=== PATIENT | male | born 1985 | race Caucasian/White ===

== ENCOUNTER 2021-09-14 12:46 | Emergency (ER) | payer OTHER, SELFPAY ==
[2021-09-14 12:47] VITALS: BP 134/87; PULSE 78; RESP 16; TEMP 36.8; O2SAT 98; BMI 22.8
--- NOTE | 2021-09-14 13:11 | PC.NURSE ---
Notified lab of drug screen for workers comp
--- NOTE | 2021-09-14 14:00 | [facility].EDWNDL ---
ED Disposition Clinical Impression: Laceration Disposition: Home, Self-Care Condition on Discharge: Good Instructions: DI for Laceration Repair Additional Instructions: Please follow-up with your primary care physician in 5 to 7 days days for further management and wound check. Please keep wound clean and dry. If any signs of infection such as surrounding redness, white purulent drainage or any other concerning signs for infection please return back to the emergency department. Please also return for any concerning signs such as severe headache, numbness, weakness, speech changes, visual abnormalities or any other concerning symptoms. Referrals: Provider,Referral, MD [Primary Care Provider] - - Critical Care Critical Care Time: No Attestation: On 09/14/21, the high probability of a clinically significant, sudden or life threatening deterioration of the following system(s) required my full and direct attention, intervention and personal management. The time I documented below is in addition to time spent performing reported procedures but includes the following listed in this critical care notation. Medical Decision Making - Medical Records Medical records reviewed: Yes: I reviewed the patient's medical records. - Justin Inquiry Pt receiving controlled substance: No Vital Signs: 09/14/21 12:47 09/14/21 14:10 Temperature 98.3 F 98.3 F Temperature Source Oral Oral Pulse Rate 84 Pulse Rate [Right] 78 Respiratory Rate 16 16 Blood Pressure 138/80 Blood Pressure [Right Arm] 134/87 Blood Pressure Mean [Right Arm] 102 Blood Pressure Source Automatic Cuff Blood Pressure Source [Right Arm] Automatic Cuff Blood Pressure Position Sitting Blood Pressure Position [Right Arm] Sitting 02 Sat by Pulse Oximetry 98 Oxygen Delivery Method Room Air Room Air - Lab Data Lab results reviewed: Yes: I reviewed the patient's lab results. Medical Decision Narrative: Mr. Bazzi is a 36 yo male w/ no significant PMh who presents w/ an accidental self inflicted laceration to frontal scalp. Neg LOC. Patient is hemodynamically stable and GCS 15 on arrival. No focal neurological deficits on exam. Denies midline cervical tenderness. No sensory or motor changes. [place] head CT neg and Nexus neg. No further management needed. Patients wound is irrigated with copious amounts of sterile saline and repaired at bedside w/ x6 5-0 fast gut sutures. Patient is provided wound care and informed to fu w pcp in 5-7d for wound check. Patient instructed to return for signs o finfection including eyrthema, purulent white drainage. Or severe headaches, numbness, weakness or any other concerns. Wound/Laceration HPI - General Chief Complaint: Wound/Laceration Stated Complaint: wc 09/14 laceration right eyebrow Time Seen by Provider: 09/14/21 12:50 Mode of Arrival: Ambulatory Source of Information: Patient Limitations: No Limitations Description of Symptoms (Recalled from ER Triage Doc. by RN): pt was at work when he hit himself in the head with a hammer. Pt has lac above the right eyebrow, denies any LOC or any other issues - History of Present Illness HPI narrative: Mr. Bazzi is a 36 yo male w/ no significant PMH who presents to the ED for laceration of the frontal scalp. Patient reports he was at work and accidentally hit himself in the forehead w/ his hammer. He has moderate thickness laceration to frontal scalp. Hemostasis is achieved. Denies blood thinners. No headache, visual changes or other focal neurological deficits. Neg LOC. Onset (ago): hour(s) Location: scalp Place: work Patient tetanus UTD: Yes Context: accidental Associated symptoms: none - Related Data Allergies Allergy/AdvReac Type Severity Reaction Status Date / Time No Known Allergies Allergy Verified 07/18/20 13:17 [facility] History - Hepatitis A Screen Drug use history?: No High risk sexual behaviors?: No History of sexually transmitted infection?: No Currently emp
[2021-09-14 14:10] VITALS: BP 138/80; PULSE 84; RESP 16; TEMP 36.8; O2SAT 98
== END 2021-09-14 14:14 | disposition home or self-care (01) ==
PROVIDERS: Emergency Provider Student in an Organized Health Care Education/Training Program
DX: S01.111A Laceration without foreign body of right eyelid and periocular area, initial encounter (principal)
CPT/HCPCS: 12011; 99282